=== PATIENT | female | born 1960 | race African-American/Black ===

== ENCOUNTER 2019-03-31 23:45 | Emergency (ER) | payer OTHER ==
[~2019-03-31] VITALS: Ht 175.3 cm; Wt 93.9 kg
[2019-04-01 00:05] VITALS: Ht 175.3 cm; Wt 93.9 kg
[2019-04-01 02:20] VITALS: BP 169/89
== END 2019-04-01 02:20 | disposition home or self-care (01) ==
LOC: ED 23:45
DX: S89.91XA Unspecified injury of right lower leg, initial encounter (principal); I10 Essential (primary) hypertension; X50.1XXA Overexertion from prolonged static or awkward postures, initial encounter; Y93.01 Activity, walking, marching and hiking; Y92.89 Other specified places as the place of occurrence of the external cause; Y99.8 Other external cause status
CPT/HCPCS: J1885; Q0092